=== PATIENT | male | born 1935 | race Caucasian/White ===

== ENCOUNTER 2020-02-10 09:46 | Inpatient (IN) ==
[2020-02-10 10:53] LABS: Amorphous Crystals,Urine Occasional /HPF (Few); Bilirubin,Urine Negative (Negative); Blood, Urine Small mg/dL (Negative); Glucose,Urine (UA) Negative (Negative); Hyaline Casts,Urine 1 /LPF (0-3); Ketones,Urine 5 mg/dL (Negative); Mucus,Urine Occasional /LPF (Occasional); Nitrite,Urine Negative (Negative); Protein,Urine 30 MG/DL; RBC,Urine 10 /HPF (0-4); Sperm,Urine Occasional /HPF (Negative); Urine Appearance CLEAR (Clear); Urine Color Yellow (Yellow); Urine Specific Gravity 1.019 (1.001-1.035); Urine Urobilinogen < 2.0 EU/DL (0.2-1.0); WBC,Urine <1 /HPF (0-6)
[2020-02-10 10:55] LABS: Barbiturates Screen,Urine Negative (Negative); Benzodiazepines Screen,Urine Negative (Negative); Cannabinoid Screen,Urine Negative (Negative); Opiate Screen,Urine Negative (Negative); Phencyclidine Screen,Urine Negative (Negative)
[2020-02-10 11:39] LABS: Partial Thromboplastin Time 29.9 SECS (23.9-33.8)
[2020-02-10 11:47] LABS: Bilirubin,Total 1.1 MG/DL (0.2-1.0); Calcium 9.9 MG/DL (8.5-10.1); Osmolality,Calculated 287.4 MOS/KG (273-304)
[2020-02-10] MEDS ORDERED: ACETAMINOPHEN 325 MG TABLET PO PRN (12:27)
[2020-02-10] MEDS ORDERED: ONDANSETRON 4 MG/2 ML VIAL IV PRN (12:27)
[2020-02-10] MEDS ORDERED: ENOXAPARIN 30 MG/0.3 ML SYRINGE ONE (14:32)
[2020-02-10] MEDS: SODIUM CHLORIDE 0.45% 1,000 ML IV SCH (14:42)
[2020-02-10] MEDS: hydroCHLOROthiazide 12.5 MG CAPSULE PO SCH (15:57)
[2020-02-10] MEDS: ENOXAPARIN 40 MG/0.4 ML SYRINGE SUBCUT SCH (17:06)
[2020-02-10] MEDS: ATORVASTATIN 20 MG TABLET PO SCH (20:56)
[2020-02-10] MEDS: DOCUSATE SODIUM 100 MG CAPSULE PO SCH (20:56)
[2020-02-10] MEDS ORDERED: DONEPEZIL 10 MG TABLET PO SCH (21:00)
[2020-02-11] MEDS ORDERED: HALOPERIDOL 5 MG/ML AMP IM ONE (04:10)
[2020-02-11 06:06] LABS: Basophils % 0.3 % (0.0-0.8); Eosinophils % 0.3 % (0.00-10.9); Hematocrit 28.7 VOL% (42.0-52.0); Hemoglobin 9.9 GM/DL (14.0-18.0); Immature Granulocytes % 0.6 %; Immature Granulocytes Absolute 0.07 #; Lymphocytes # 2.5 10*3/uL (1.4-4.0); Mean Corpuscular HGB Conc 34.5 GM/DL (32-36); Mean Corpuscular Volume 90.3 FL (87-102); Mean Platelet Volume 9.4 FL (9.6-12.0); Monocytes % 7.9 % (1.7-12.7); Neutrophils % 69.9 % (38.7-73.9); Platelet Count 229 T/CUMM (130-400); Red Blood Count 3.18 MC/CUMM (3.8-5.5); Red Cell Distribution Width 14.6 % (9.3-17.3)
[2020-02-11 06:18] LABS: Calcium 9.6 MG/DL (8.5-10.1); Osmolality,Calculated 287.3 MOS/KG (273-304)
[2020-02-11] MEDS: DOCUSATE SODIUM 100 MG CAPSULE PO SCH ×2 (09:08→20:47)
[2020-02-11] MEDS: OMEGA 3 ACID ETHYL ESTERS 1 GM CAPSULE PO SCH (09:08)
[2020-02-11] MEDS: CLOPIDOGREL 75 MG TABLET PO SCH (09:08)
[2020-02-11] MEDS: OLMESARTAN 20 MG TABLET PO SCH (09:08)
[2020-02-11] MEDS: hydroCHLOROthiazide 12.5 MG CAPSULE PO SCH (09:08)
[2020-02-11] MEDS: amLODIPine 2.5 MG TABLET PO SCH (09:08)
[2020-02-11] MEDS: MULTIVITAMIN (CENTRUM) TABLET PO SCH (09:08)
[2020-02-11] MEDS: HALOPERIDOL 5 MG TABLET PO SCH ×2 (09:08→20:47)
[2020-02-11] MEDS: ASPIRIN EC 81 MG TABLET PO SCH (09:08)
[2020-02-11] MEDS: levETIRAcetam 500 MG TABLET PO SCH ×2 (09:08→20:47)
[2020-02-11] MEDS: PANTOPRAZOLE 40 MG TABLET PO SCH (09:09)
[2020-02-11] MEDS: ASCORBIC ACID 500 MG TABLET PO SCH (09:09)
[2020-02-11] MEDS: SODIUM CHLORIDE 0.45% 1,000 ML IV SCH (10:42)
[2020-02-11] MEDS: ENOXAPARIN 40 MG/0.4 ML SYRINGE SUBCUT SCH (18:12)
[2020-02-11] MEDS: ATORVASTATIN 20 MG TABLET PO SCH (20:47)
[2020-02-12] MEDS: SODIUM CHLORIDE 0.45% 1,000 ML IV SCH (06:14)
[2020-02-12] MEDS: MULTIVITAMIN (CENTRUM) TABLET PO SCH (10:15)
[2020-02-12] MEDS: ASPIRIN EC 81 MG TABLET PO SCH (10:15)
[2020-02-12] MEDS: OLMESARTAN 20 MG TABLET PO SCH (10:15)
[2020-02-12] MEDS: amLODIPine 2.5 MG TABLET PO SCH (10:16)
[2020-02-12] MEDS: levETIRAcetam 500 MG TABLET PO SCH ×2 (10:16→21:20)
[2020-02-12] MEDS: PANTOPRAZOLE 40 MG TABLET PO SCH (10:16)
[2020-02-12] MEDS: HALOPERIDOL 5 MG TABLET PO SCH ×2 (10:16→21:21)
[2020-02-12] MEDS: hydroCHLOROthiazide 12.5 MG CAPSULE PO SCH (10:16)
[2020-02-12] MEDS: OMEGA 3 ACID ETHYL ESTERS 1 GM CAPSULE PO SCH (10:16)
[2020-02-12] MEDS: ASCORBIC ACID 500 MG TABLET PO SCH (10:16)
[2020-02-12] MEDS: DOCUSATE SODIUM 100 MG CAPSULE PO SCH ×2 (10:16→21:19)
[2020-02-12] MEDS: CLOPIDOGREL 75 MG TABLET PO SCH (10:16)
[2020-02-12] MEDS: ENOXAPARIN 40 MG/0.4 ML SYRINGE SUBCUT SCH (18:06)
[2020-02-12] MEDS: ATORVASTATIN 20 MG TABLET PO SCH (21:20)
[2020-02-13] MEDS: CLOPIDOGREL 75 MG TABLET PO SCH (09:29)
[2020-02-13] MEDS: OLMESARTAN 20 MG TABLET PO SCH (09:29)
[2020-02-13] MEDS: ASCORBIC ACID 500 MG TABLET PO SCH (09:29)
[2020-02-13] MEDS: PANTOPRAZOLE 40 MG TABLET PO SCH (09:29)
[2020-02-13] MEDS: DOCUSATE SODIUM 100 MG CAPSULE PO SCH ×2 (09:29→22:25)
[2020-02-13] MEDS: hydroCHLOROthiazide 12.5 MG CAPSULE PO SCH (09:29)
[2020-02-13] MEDS: ASPIRIN EC 81 MG TABLET PO SCH (09:29)
[2020-02-13] MEDS: OMEGA 3 ACID ETHYL ESTERS 1 GM CAPSULE PO SCH (09:29)
[2020-02-13] MEDS: levETIRAcetam 500 MG TABLET PO SCH ×2 (09:30→22:25)
[2020-02-13] MEDS: HALOPERIDOL 5 MG TABLET PO SCH ×2 (09:30→22:25)
[2020-02-13] MEDS: MULTIVITAMIN (CENTRUM) TABLET PO SCH (09:30)
[2020-02-13] MEDS: amLODIPine 2.5 MG TABLET PO SCH (09:30)
[2020-02-13] MEDS: SODIUM CHLORIDE 0.45% 1,000 ML IV SCH (09:31)
[2020-02-13 11:01] LABS: Basophils % 0.3 % (0.0-0.8); Eosinophils # 0.1 10*3/uL (0.0-0.87); Hematocrit 29.8 VOL% (42.0-52.0); Hemoglobin 10.4 GM/DL (14.0-18.0); Immature Granulocytes % 0.4 %; Immature Granulocytes Absolute 0.05 #; Lymphocytes # 1.5 10*3/uL (1.4-4.0); Lymphocytes % 12.8 % (21.2-54.2); Mean Corpuscular HGB Conc 34.9 GM/DL (32-36); Mean Corpuscular Volume 88.7 FL (87-102); Mean Platelet Volume 9.1 FL (9.6-12.0); Monocytes % 7.6 % (1.7-12.7); Neutrophils % 77.9 % (38.7-73.9); Platelet Count 252 T/CUMM (130-400); Red Blood Count 3.36 MC/CUMM (3.8-5.5); Red Cell Distribution Width 14.2 % (9.3-17.3); White Blood Count 11.6 T/CUMM (4-12)
[2020-02-13 11:26] LABS: Calcium 9.3 MG/DL (8.5-10.1); Osmolality,Calculated 278.5 MOS/KG (273-304)
[2020-02-13] MEDS: ENOXAPARIN 40 MG/0.4 ML SYRINGE SUBCUT SCH (17:19)
[2020-02-13] MEDS: ATORVASTATIN 20 MG TABLET PO SCH (22:25)
[2020-02-14 05:38] LABS: Basophils % 0.3 % (0.0-0.8); Eosinophils # 0.1 10*3/uL (0.0-0.87); Eosinophils % 0.5 % (0.00-10.9); Hematocrit 32.4 VOL% (42.0-52.0); Hemoglobin 11.1 GM/DL (14.0-18.0); Immature Granulocytes % 0.4 %; Immature Granulocytes Absolute 0.06 #; Lymphocytes # 1.6 10*3/uL (1.4-4.0); Lymphocytes % 10.4 % (21.2-54.2); Mean Corpuscular HGB Conc 34.3 GM/DL (32-36); Mean Corpuscular Volume 89.8 FL (87-102); Mean Platelet Volume 9.3 FL (9.6-12.0); Monocytes % 6.7 % (1.7-12.7); Neutrophils % 81.7 % (38.7-73.9); Platelet Count 296 T/CUMM (130-400); Red Blood Count 3.61 MC/CUMM (3.8-5.5); Red Cell Distribution Width 14.2 % (9.3-17.3); White Blood Count 15.4 T/CUMM (4-12)
[2020-02-14 06:12] LABS: Calcium 9.6 MG/DL (8.5-10.1); Osmolality,Calculated 277.7 MOS/KG (273-304)
[2020-02-14] MEDS: OMEGA 3 ACID ETHYL ESTERS 1 GM CAPSULE PO SCH (09:46)
[2020-02-14] MEDS: CLOPIDOGREL 75 MG TABLET PO SCH (09:46)
[2020-02-14] MEDS: OLMESARTAN 20 MG TABLET PO SCH (09:46)
[2020-02-14] MEDS: PANTOPRAZOLE 40 MG TABLET PO SCH (09:46)
[2020-02-14] MEDS: MULTIVITAMIN (CENTRUM) TABLET PO SCH (09:46)
[2020-02-14] MEDS: levETIRAcetam 500 MG TABLET PO SCH (09:46)
[2020-02-14] MEDS: hydroCHLOROthiazide 12.5 MG CAPSULE PO SCH (09:46)
[2020-02-14] MEDS: amLODIPine 2.5 MG TABLET PO SCH (09:46)
[2020-02-14] MEDS: ASCORBIC ACID 500 MG TABLET PO SCH (09:46)
[2020-02-14] MEDS: DOCUSATE SODIUM 100 MG CAPSULE PO SCH (09:47)
[2020-02-14] MEDS: HALOPERIDOL 5 MG TABLET PO SCH (09:47)
[2020-02-14] MEDS: ASPIRIN EC 81 MG TABLET PO SCH (09:47)
[2020-02-14 11:18] VITALS: BP 120/72
== END 2020-02-14 13:11 | disposition swing bed (61) | DRG 57 ==
LOC: EDBD → EDUNIT# → N.ED 09:46 → N.EDINP 12:27 → N.TELEN 14:43 → N.3E 02-13 18:22
PROVIDERS: ADMIT Family Medicine; ATTEND Family Medicine

== ENCOUNTER 2020-04-28 21:37 | Inpatient (IN) ==
[2020-04-28 21:53] LABS: Basophils # 0.1 10*3/uL (0.0-0.2); Basophils % 0.3 % (0.0-0.8); Eosinophils % 0.1 % (0.00-10.9); Hematocrit 34.5 VOL% (42.0-52.0); Immature Granulocytes Absolute 0.23 #; Lymphocytes # 1.1 10*3/uL (1.4-4.0); Lymphocytes % 4.8 % (21.2-54.2); Mean Corpuscular HGB Conc 31.9 GM/DL (32-36); Mean Platelet Volume 9.1 FL (9.6-12.0); Monocytes % 3.9 % (1.7-12.7); Neutrophils % 89.9 % (38.7-73.9); Platelet Count 324 T/CUMM (130-400); Red Blood Count 3.79 MC/CUMM (3.8-5.5); Red Cell Distribution Width 15.8 % (9.3-17.3); White Blood Count 22.3 T/CUMM (4-12)
[2020-04-28 22:14] LABS: Band Neutrophils 1 % (0-10); Lymphocytes 1 % (20-55); Platelet Estimate Adequate; Segmented Neutrophils 93 % (50-85); Total Cells Counted 100
[2020-04-28 22:16] LABS: Anisocytosis Slight
[2020-04-28 22:19] LABS: Alanine Aminotransferase 16 U/L (16-61); Albumin 2.5 G/DL (3.4-5.0); Alkaline Phosphatase 105 U/L (45-117); Aspartate Amino Transferase 15 U/L (0-37); Blood Urea Nitrogen 18 MG/DL (7-18); Carbon Dioxide 21 MMOL/L (21-32); Glucose 142 MG/DL (74-106); Osmolality,Calculated 282.4 MOS/KG (273-304); Potassium 3.3 MMOL/L (3.5-5.1); Sodium 140 MMOL/L (136-145); Total Protein 6.5 G/DL (6.4-8.3)
[2020-04-28 22:21] LABS: Ammonia < 10 UMOL/L (11-32)
[2020-04-28 22:27] LABS: Estimated Glom Filtration Rate 0 ML/MIN; Lactic Acid 2.1 MMOL/L (0.4-2.0)
[2020-04-28 22:38] LABS: Bacteria,Urine Many /HPF (Few); Bilirubin,Urine Negative (Negative); Blood, Urine Moderate mg/dL (Negative); Glucose,Urine (UA) Negative (Negative); Ketones,Urine Negative (Negative); Mucus,Urine Occasional /LPF (Occasional); Nitrite,Urine Negative (Negative); Protein,Urine 30 MG/DL; RBC,Urine 35 /HPF (0-4); Urine Appearance CLOUDY (Clear); Urine Color Yellow (Yellow); Urine Specific Gravity 1.014 (1.001-1.035); Urine Urobilinogen < 2.0 EU/DL (0.2-1.0); WBC,Urine 261 /HPF (0-6)
[2020-04-28] MEDS ORDERED: HYDROmorphone 2 MG/1 ML VIAL IV PRN (23:08)
[2020-04-28] MEDS ORDERED: ONDANSETRON 4 MG/2 ML VIAL IV PRN (23:08)
[2020-04-29] MEDS: DEXTROSE 5% NACL 0.9% 1,000 ML IV SCH ×3 (00:32→10:12)
[2020-04-29] MEDS ORDERED: PANTOPRAZOLE 40 MG TABLET PO SCH (09:00)
[2020-04-30] MEDS ORDERED: LORazepam 2 MG/1 ML VIAL IV PRN (14:06)
[2020-04-30] MEDS: ACETAMINOPHEN 650 MG SUPP RECTAL PRN (21:28)
[2020-05-01] MEDS: ACETAMINOPHEN 650 MG SUPP RECTAL PRN (04:19)
[2020-05-01 07:41] VITALS: BP 111/72
[2020-05-01] MEDS: MORPHINE 4 MG/1 ML VIAL IV PRN ×2 (09:02→13:17)
== END 2020-05-01 14:41 | disposition hospice, inpatient (51) | DRG 82 ==
LOC: N.ED 21:37 → N.EDINP 23:08 → N.5E 04-29 01:58
PROVIDERS: ADMIT Family Medicine; ATTEND Family Medicine

== ENCOUNTER 2020-05-01 14:40 | Inpatient (IN) ==
[2020-05-01] MEDS ORDERED: LORazepam 2 MG/1 ML VIAL IV PRN (15:37)
[2020-05-01] MEDS ORDERED: ACETAMINOPHEN 650 MG SUPP RECTAL PRN (15:40)
[2020-05-01] MEDS: MORPHINE 4 MG/1 ML VIAL IV PRN (18:28)
[2020-05-02] MEDS: MORPHINE 4 MG/1 ML VIAL IV PRN ×3 (03:44→18:09)
[2020-05-02] MEDS ORDERED: MORPHINE 4 MG/1 ML VIAL IV PRN (10:54)
[2020-05-02] MEDS: LORazepam 2 MG/1 ML VIAL IV PRN (12:49)
[2020-05-03 08:56] VITALS: BP 134/78
[2020-05-03] MEDS: MORPHINE 4 MG/1 ML VIAL IV PRN (13:44)
[2020-05-03] MEDS: LORazepam 2 MG/1 ML VIAL IV PRN (17:17)
== END 2020-05-03 21:52 | disposition expired | DRG 951 ==
LOC: N.5E 14:40
PROVIDERS: ADMIT Internal Medicine; ATTEND Internal Medicine